=== PATIENT | male | born 1980 | race Caucasian/White ===

== ENCOUNTER → 2017-07-28 12:57 | Outpatient (CLI) | payer OTHER ==
[~2017-07-28 12:57] MED LIST: ABILIFY2 MG PO; ADDERALL 20 MG20 M1 PO; EFFEXOR XR150 MG PO; HYDROCHLOROTHIA25 MG PO
[2017-08-10 11:57] VITALS: BMI 33.8
== END | disposition home or self-care (01) ==
LOC: D.RAD 07-26 13:00 → D.MRI 07-26 14:30 → D.RAD 07-27 13:30 → D.MRI 07-27 14:30 → D.RAD 12:57
DX: S43.492A Other sprain of left shoulder joint, initial encounter (principal); X58.XXXA Exposure to other specified factors, initial encounter; Y93.89 Activity, other specified; Y92.89 Other specified places as the place of occurrence of the external cause

== ENCOUNTER 2017-08-09 19:36 | Inpatient (IN) | payer OTHER ==
[~2017-08-09] VITALS: Ht 190.5 cm; Wt 122.7 kg
--- NOTE | ~2017-08-09 | CN ---
PATIENT NAME:ERICK CARMONA MEDICAL RECORD: [id number] : 78 LOCATION:[id number] ADMIT DATE: 08/09/17 ACCOUNT: [id number] CONSULTING PHYSICIAN: NELLY BROWNE III, MD REFERRING PHYSICIAN: CHRISTINA MORENO MD DATE OF CONSULTATION: 08/10/2017 HISTORY: A 36-year-old engaged white male who was admitted following an overdose of Effexor and Abilify. On exam this morning, the patient remained somewhat drowsy, but is cooperative. He states that he has been diagnosed as having either depression or bipolar in the past. He does not see a psychiatrist, but he is receiving routine prescriptions for Effexor XR 150 mg daily and Abilify 2 mg daily. The patient has a number of ongoing personal issues. He was drinking at the time of the overdose last night and may well have a substance abuse problem. He had been living with the [facility], but is now . 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 He is having a great deal of difficulty making ends meet. Currently, he is behind on his child support payments. He is somewhat estranged from his family. The patient states that he has had periods of extreme dysphoria in the past. He states he does not think that he would hurt himself now, but is willing to accept inpatient psychiatric treatment. MENTAL STATUS EXAM: The patient is pleasant and alert. Mood is dysphoric. The patient becomes tearful during the course of the interview. Affect is slightly labile. Speech is fluent. Content of thought as noted above. Sensorium essentially clear. DIAGNOSTIC IMPRESSION: AXIS I: Major depressive disorder -- recurrent -- rule out bipolar, depressed phase. RECOMMENDATIONS: 1. We would immediately restart Effexor XR to prevent abstinence syndrome. 2. As soon as the patient is medically stable, arrange for transfer to inpatient psychiatry. TRANSINT:[id number] Voice Confirmation ID: [id number] DOCUMENT ID: [id number] NELLY BROWNE III, MD at 0932 CC: [id number] DICTATION DATE: 08/10/17 1126 SPECIAL SERVICES AGENT: 08/10/17 1140 DIS IN 08/10/17 [id number] [place] [address]
[2017-08-09 20:33] LABS: EOSINOPHILS 3.6 % (0-7); HEMATOCRIT 45.3 % (42.0-54.0); HEMOGLOBIN 15.6 g/dL (13.5-17.5); IMMATURE GRANULOCYTES 0.4 % (0-5); LYMPHOCYTES 22.9 % (15-50); MCH 31.3 pg (26.0-34.0); MCHC 34.4 g/dL (31.0-37.0); MEAN PLATELET VOLUME 9.8 fL (7.4-10.4); MONOCYTES 6.4 % (2-11); NEUTROPHILS 65.7 % (40-80); PLATELET COUNT 208 10x3/uL (130-400); RBC 4.98 10x6/uL (4.20-6.10); RDW 13.1 % (11.5-14.5)
[2017-08-09 20:58] LABS: ALBUMIN 3.1 g/dL (3.4-5.0); ALKALINE PHOSPHATASE 58 U/L (46-116); ALT (SGPT) 19 U/L (10-68); CALC OSMOLALITY 282 mosm/kg (275-300); CALCIUM 8.3 mg/dL (8.5-10.1); CARBON DIOXIDE 23.3 mmol/L (21.0-32.0); CHLORIDE - SERUM 104 mmol/L (98-107); CREATININE - SERUM 1.1 mg/dL (0.6-1.3); GLUCOSE 111 mg/dL (74-106); POTASSIUM - SERUM 3.4 mmol/L (3.5-5.1); PROTEIN - SERUM 6.7 g/dL (6.4-8.2); SODIUM 142 mmol/L (136-145); UREA NITROGEN 11 mg/dL (7-18); eGFR NON AFRICAN AMERICAN 80 mL/min (90-120)
[2017-08-09 21:39] LABS: APPEARANCE CLEAR (CLEAR); BILIRUBIN NEGATIVE (NEGATIVE); COLOR YELLOW (YELLOW); GLUCOSE NEGATIVE (NEGATIVE); KETONE NEGATIVE (NEGATIVE); NITRITE NEGATIVE (NEGATIVE); PROTEIN NEGATIVE (NEGATIVE); UROBILINOGEN NORMAL (NORMAL)
[2017-08-09 23:43] VITALS: BP 135/91; BMI 33.8
[2017-08-09 23:45] VITALS: BP 135/91
[2017-08-09] MEDS ORDERED: ADDERALL 20 MG20 M1 PO (23:51)
[2017-08-09] MEDS ORDERED: EFFEXOR XR150 MG PO (23:52)
[2017-08-09 23:53] LABS: UDS - AMPHET NEGATIVE QUAL (NEGATIVE); UDS - BARB NEGATIVE QUAL (NEGATIVE); UDS - BENZO NEGATIVE QUAL (NEGATIVE); UDS - COCAINE NEGATIVE QUAL (NEGATIVE); UDS - OPIATE NEGATIVE QUAL (NEGATIVE); UDS - PCP NEGATIVE QUAL (NEGATIVE); UDS - THC POSITIVE QUAL (NEGATIVE)
[2017-08-09] MEDS ORDERED: ABILIFY2 MG PO (23:53)
[2017-08-09] MEDS ORDERED: HYDROCHLOROTHIA25 MG PO (23:54)
[2017-08-09 23:57] VITALS: BP 135/91
[2017-08-10] VITALS (14 sets, daily range): BP systolic 108–141; BP diastolic 66–96; Ht 190.5 cm; Wt 122.7 kg
== END 2017-08-10 22:30 | disposition short-term general hospital (02) | DRG 918 ==
LOC: D.ER 19:36 → D.EDHOLD 21:35 → D.ICU 21:35 → D.EDHOLD 21:35 → D.ICU 23:00
PROVIDERS: Emergency Medicine
PROC: 3E1G78Z Irrigation of Upper GI using Irrigating Substance, Via Natural or Artificial Opening (ICD-10-PCS; principal; 2017-08-09)
DX: T43.592A Poisoning by other antipsychotics and neuroleptics, intentional self-harm, initial encounter (principal); T43.212A Poisoning by selective serotonin and norepinephrine reuptake inhibitors, intentional self-harm, initial encounter; F10.10 Alcohol abuse, uncomplicated; R40.2362 Coma scale, best motor response, obeys commands, at arrival to emergency department; R40.2142 Coma scale, eyes open, spontaneous, at arrival to emergency department; R40.2252 Coma scale, best verbal response, oriented, at arrival to emergency department